=== PATIENT | female | born 1940 | race Caucasian/White ===

== ENCOUNTER 2019-05-13 13:19 | Emergency (ER) | payer MEDICARE, BC ==
[~2019-05-13] VITALS: Ht 162.6 cm; Wt 50.3 kg
--- NOTE | 2019-05-13 13:42 | PHYS DOC ---
Past Medical History Past Medical History: CVA, Hypertension Additional Past Medical Histor: valvular heart disease Additional Past Surgical Histo: heart valve replacement Smoking: Cigarettes (The patient is a nonsmoker.) Adult General HPI HPI Patient is an 79-year-old female, who presents to the emergency department for evaluation. She was at home, cooking, when she began experiencing dizziness, described as a lightheadedness, as well as shortness of breath. Her family helped her sit down, but her symptoms did not resolve so EMS was called. The pat ient did not have any pain. She denies having any chest pain at this time. She reported persistent dizziness in the ambulance on the way to the emergency department, but at the time of arrival, she is asymptomatic. She feels back to her baseline. She denies any dizziness or lightheadedness at this time, denies any chest pain, shortness of breath, new numbness, or focal weakness. She does have a history of a stroke with some residual right-sided weakness as well as some chronic speech impairment, but her speech and motor function is at baseline. There are no alleviating or exacerbating factors to her symptoms otherwise. Review of Systems Review of Systems Constitutional: Denies fever or chills [] Eyes: Denies change in visual acuity, redness, or eye pain [] HENT: Denies nasal congestion or sore throat [] Respiratory: Denies cough or current shortness of breath [] Cardiovascular: The patient denies any chest pain, palpitations, or orthopnea [] GI: Denies abdominal pain, nausea, vomiting, bloody stools or diarrhea [] : Denies dysuria or hematuria [] Musculoskeletal: Denies back pain or joint pain [] Integument: Denies rash or skin lesions [] Neurologic: Denies headache, focal weakness or sensory changes [] Endocrine: Denies polyuria or polydipsia [] All other systems were reviewed and found to be within normal limits, except as documented in this note. Allergies Allergies Allergies Coded Allergies Type Severity Reaction Last Updated Verified codeine Allergy Intermediate 05/13/19 Yes Physical Exam Physical Exam PHYSICAL EXAM: CONSTITUTIONAL: Well developed, well nourished HEAD: normocephalic, atraumatic EENT: PERRL, EOMI. Conjunctivae normal color, sclerae non-icteric; moist mucous membranes. NECK: Supple, non-tender; no meningismus. LUNGS: Lungs CTA, breathing even and unlabored. Normal air movement. HEART: Regular rate and rhythm, no murmur. There is an S4 gallop present CHEST: No deformity; non-tender ABDOMEN: The abdomen is soft, and non-tender, no masses or bruits. EXTREM: Normal ROM; no deformity, mild bilateral calf tenderness, which the patient and her state are chronic. Normal pulses palpable in all extremities. There is trace bilateral pedal edema. SKIN: No rash; no diaphoresis NEURO: Alert; normal speech and cognition; CN's grossly intact; strength grossly intact without focal deficit. BACK: No CVA TTP. Current Patient Data Vital Signs Vital Signs Date Time Temp Pulse Resp B/P (MAP) Pulse Ox O2 Delivery O2 Flow Rate FiO2 05/13/19 13:53 98.6 73 16 157/75 (102) 96 Room Air 98.6 Lab Values Laboratory Tests Test 05/13/19 13:42 05/13/19 14:20 White Blood Count 6.4 x10^3/uL (4.0-11.0) Red Blood Count 4.23 x10^6/uL (3.50-5.40) Hemoglobin 13.1 g/dL (12.0-15.5) Hematocrit 39.0 % (36.0-47.0) Mean Corpuscular Volume 92 fL (79-100) Mean Corpuscular Hemoglobin 31 pg (25-35) Mean Corpuscular Hemoglobin Concent 34 g/dL (31-37) Red Cell Distribution Width 14.7 % (11.5-14.5) H Platelet Count 200 x10^3/uL (140-400) Neutrophils (%) (Auto) 56 % (31-73) Lymphocytes (%) (Auto) 34 % (24-48) Monocytes (%) (Auto) 8 % (0-9) Eosinophils (%) (Auto) 1 % (0-3) Basophils (%) (Auto) 1 % (0-3) Neutrophils # (Auto) 3.5 x10^3/uL (1.8-7.7) Lymphocytes # (Auto) 2.2 x10^3/uL (1.0-4.8) Monocytes # (Auto) 0.5 x10^3/uL (0.0-1.1) Eosinophils # (Auto) 0.1 x10^3/uL (0.0-0.7) Basophils # (Auto) 0.1 x10^3/uL (0.0-0.2) Prothrombin Time 41.4 SEC (11.7-14.0) H Prothrombin Time INR 4.3 (0.8-1.1) H Sodium Level 142 mmol/L (136-145) Potassium Level 4.0 mmol/L (3.5-5.1) Chloride Level 103 mmol/L (98-107) Carbon Dioxide Level 33 mmol/L (21-32) H Anion Gap 6 (6-14) Blood Urea Nitrogen 24 mg/dL (7-20) H Creatinine 1.2 mg/dL (0.6-1.0) H Estimated GFR (Cockcroft-Gault) 43.2 BUN/Creatinine Ratio 20 (6-20) Glucose Level 105 mg/dL (70-99) H Calcium Level 9.4 mg/dL (8.5-10.1) Total Bilirubin 0.6 mg/dL (0.2-1.0) Aspartate Amino Transferase (AST) 42 U/L (15-37) H Alanine Aminotransferase (ALT) 40 U/L (14-59) Alkaline Phosphatase 300 U/L (46-116) H Troponin I Quantitative < 0.017 ng/mL (0.000-0.055) II-Ldc-S-Type Natriuretic Peptide 1170 pg/mL (0-449) H Total Protein 6.4 g/dL (6.4-8.2) Albumin 3.5 g/dL (3.4-5.0) Albumin/Globulin Ratio 1.2 (1.0-1.7) Thyroid Stimulating Hormone (TSH) 3.168 uIU/mL (0.358-3.74) Free Thyroxine 1.04 ng/dL (0.76-1.46) Laboratory Tests 05/13/19 13:42 Laboratory Tests 05/13/19 14:20 EKG EKG Normal sinus rhythm at a rate of 72 beats for minute, left axis deviation, left bundle branch block, nonspecific ST/T changes are present.[] Radiology/Procedures Radiology/Procedures [PROCEDURE: PORTABLE CHEST 1V AP portable chest radiograph 05/23/2019 Clinical History: Shortness of breath and weakness. An AP erect portable digital radiograph of the chest was obtained. No previous studies are available for comparison. The patient is post cardiac valve replacement. The cardiac silhouette is mildly enlarged. Atherosclerotic calcification of the thoracic aorta is seen. The thoracic aorta is mildly tortuous. No acute pulmonary infiltrate is seen. No pneumothorax or pleural effusion is seen. There is diffuse osteopenia of the visualized bony structures. Degenerative changes are seen involving the thoracic spine and both shoulders. IMPRESSION: No acute abnormality is seen.] Course & Med Decision Making Course & Med Decision Making Pertinent Labs and Imaging studies reviewed. (See chart for details) []3:10 PM: The patient's condition remains stable, she remains asymptomatic. I discussed test results with the patient, and we discussed overnight hospitalization, as I do not have a clear etiology of the patient's symptoms, but the patient declined. We discussed the possibility of occult cardiac arrhythmia or other cardiac event which could be causing the symptoms but the patient still declined hospitalization. She would like to go home. I discussed the elevated INR, holding tonight's Coumadin dose, and then resuming, the need for close PCP follow-up and return precautions. Dragon Disclaimer Dragon Disclaimer This electronic medical record was generated, in whole or in part, using a voice recognition dictation system. Departure Departure Impression: Primary Impression: Dizziness Additional Impressions: Shortness of breath Elevated INR Disposition: 01 HOME, SELF-CARE Condition: STABLE Patient Instructions: Dizziness, Shortness of Breath Additional Instructions: Skip your warfarin dose today, and then resume according to regular schedule, have your INR rechecked within one week. Problem Qualifiers CYNTHIA DURAN MD May 13, 2019 13:42
[2019-05-13 13:50] LABS: BASO # 0.1 x10^3/uL (0.0-0.2); BASO % 1 % (0-3); EOS # 0.1 x10^3/uL (0.0-0.7); EOS % 1 % (0-3); HEMOGLOBIN 13.1 g/dL (12.0-15.5); LYMPH # 2.2 x10^3/uL (1.0-4.8); LYMPH % 34 % (24-48); MEAN CORPUSCULAR HEMOGLOBIN 31 pg (25-35); MEAN CORPUSCULAR HGB CONC 34 g/dL (31-37); MEAN CORPUSCULAR VOLUME 92 fL (79-100); MONO # 0.5 x10^3/uL (0.0-1.1); MONO % 8 % (0-9); NEUT # 3.5 x10^3/uL (1.8-7.7); NEUT % 56 % (31-73); PLATELET COUNT 200 x10^3/uL (140-400); RED BLOOD COUNT 4.23 x10^6/uL (3.50-5.40); RED CELL DISTRIBUTION WIDTH 14.7 % (11.5-14.5); WHITE BLOOD COUNT 6.4 x10^3/uL (4.0-11.0)
[2019-05-13 13:59] LABS: PROTHROMBIN TIME PATIENT 41.4 SEC (11.7-14.0)
--- NOTE | 2019-05-13 14:36 | RAD ---
AP portable chest radiograph 05/23/2019 Clinical History: Shortness of breath and weakness. An AP erect portable digital radiograph of the chest was obtained. No previous studies are available for comparison. The patient is post cardiac valve replacement. The cardiac silhouette is mildly enlarged. Atherosclerotic calcification of the thoracic aorta is seen. The thoracic aorta is mildly tortuous. No acute pulmonary infiltrate is seen. No pneumothorax or pleural effusion is seen. There is diffuse osteopenia of the visualized bony structures. Degenerative changes are seen involving the thoracic spine and both shoulders. IMPRESSION: No acute abnormality is seen. Electronically signed by: Gerardo Saavedra MD (05/13/2019 2:33 PM) [facility]
[2019-05-13 14:38] LABS: CALCIUM 9.4 mg/dL (8.5-10.1); CREATININE 1.2 mg/dL (0.6-1.0); GFR 43.2
[2019-05-13 14:43] LABS: ALBUMIN 3.5 g/dL (3.4-5.0); ALBUMIN/GLOBULIN RATIO 1.2 (1.0-1.7); TOTAL BILIRUBIN 0.6 mg/dL (0.2-1.0); TOTAL PROTEIN 6.4 g/dL (6.4-8.2)
[2019-05-13 14:51] LABS: FREE T4 1.04 ng/dL (0.76-1.46); THYROID STIM HORMONE (TSH) 3.168 uIU/mL (0.358-3.74)
[2019-05-13 15:00] VITALS: BP 153/67
--- NOTE | 2019-05-14 07:48 | EKG ---
[facility] [address] [place] [address] Test Date: 2019-05-13 Test Time: 13:26:53 Pat Name: BEN BRAY Department: Room: Gender: F Hopper Attendant: : 1940 Requested By: CYNTHIA DURAN Order Number: [id number] Reading MD: Measurements Intervals [place] Rate: 71 P: -68 IA: 188 QRS: -62 QRSD: 130 T: 78 QT: 446 QTc: 490 Interpretive Statements SINUS RHYTHM ABNORMAL LEFT AXIS DEVIATION LEFT BUNDLE BRANCH BLOCK ABNORMAL ECG No previous ECG available for comparison
== END 2019-05-13 15:30 | disposition home or self-care (01) ==
LOC: ER 13:19
DX: R42 Dizziness and giddiness (principal); R06.02 Shortness of breath; R79.1 Abnormal coagulation profile; I11.9 Hypertensive heart disease without heart failure; Z86.73 Personal history of transient ischemic attack (TIA), and cerebral infarction without residual deficits; Z95.2 Presence of prosthetic heart valve; Z88.5 Allergy status to narcotic agent
CPT/HCPCS: 36415; 71045; 80053; 83880; 84439; 84443; 84484; 85025; 85610; 93005; 99285-25

== ENCOUNTER 2020-08-19 10:14 | Emergency (ER) | payer MEDICARE, BC ==
[~2020-08-19] VITALS: Ht 162.6 cm; Wt 54.0 kg
[~2020-08-19 10:14] MED LIST: ATOR40TA PO; FURO-69 PO; METO25TA4 PO; WARF-31 PO; WARF2.5T71 PO
[2020-08-19] MEDS ORDERED: ASPIRIN 325 MG TABLET PO ONE (10:30)
[2020-08-19] MEDS ORDERED: IV NORMAL SALINE 1000ML BAG 1,000 ML IV ONE (10:30)
[2020-08-19 10:48] LABS: BASO # 0.1 x10^3/uL (0.0-0.2); BASO % 1 % (0-3); EOS # 0.1 x10^3/uL (0.0-0.7); EOS % 2 % (0-3); LYMPH # 2.5 x10^3/uL (1.0-4.8); LYMPH % 37 % (24-48); MEAN CORPUSCULAR HEMOGLOBIN 30 pg (25-35); MEAN CORPUSCULAR HGB CONC 33 g/dL (31-37); MEAN CORPUSCULAR VOLUME 90 fL (79-100); MONO # 0.7 x10^3/uL (0.0-1.1); MONO % 11 % (0-9); NEUT # 3.3 x10^3/uL (1.8-7.7); NEUT % 49 % (31-73); PLATELET COUNT 201 x10^3/uL (140-400); RED BLOOD COUNT 3.98 x10^6/uL (3.50-5.40); RED CELL DISTRIBUTION WIDTH 13.6 % (11.5-14.5); WHITE BLOOD COUNT 6.6 x10^3/uL (4.0-11.0)
[2020-08-19 11:00] LABS: CALCIUM 8.7 mg/dL (8.5-10.1); CREATININE 1.1 mg/dL (0.6-1.0); GFR 47.7; POTASSIUM 3.3 mmol/L (3.5-5.1)
[2020-08-19 11:06] LABS: ALBUMIN 3.4 g/dL (3.4-5.0); ALBUMIN/GLOBULIN RATIO 1.1 (1.0-1.7); MAGNESIUM 1.9 mg/dL (1.8-2.4); TOTAL BILIRUBIN 0.8 mg/dL (0.2-1.0); TOTAL PROTEIN 6.5 g/dL (6.4-8.2)
--- NOTE | 2020-08-19 11:20 | PHYS DOC ---
Past Medical History Past Medical History: CVA, GERD, High Cholesterol, Hypertension, Hypothyroid, Stroke Additional Past Medical Histor: valvular heart disease Past Surgical History: Hysterectomy Additional Past Surgical Histo: heart valve replacement Smoking Status: Never Smoker Alcohol Use: None Drug Use: None General Adult EDM: Chief Complaint: CHEST PAIN HPI: HPI: 80 years old female presents to the ER via EMS with a chief complaint of chest pain. Patient has a history of stroke 3 years ago with a residual slurred speech. (Of note: During the evaluation interview, patient seems to understand but have a hard time articulating or remembering details) Patient reports having baseline chest pain that worsened the last 2 - 3 days. The chest pain is intermittent without any specific trigger. Reports the pain is located in sternum and midepigastric regions. Patient cannot grade her pain level. Associated symptom of palpitation, shortness of breath, headache last night, double vision, and right leg pain. Per family, patient underwent vascular intervention in her right leg. Patient and family could not remember the exact name of the vascular procedures and the timing. Leg procedure was done at [facility] by Dr. William Grace around March to May 2020. Per [facility] review, patient was recently admitted for same complaint. After 3 negative troponins, it was thought patient's pain to be more likely secondary to known fibromyalgia. Review of Systems: Review of Systems: Constitutional: Denies fever or chills Eyes: Denies redness or eye pain HENT: Denies nasal congestion or sore throat Respiratory: Denies cough, reports shortness of breath Cardiovascular: Reports occasional palpitation, reports chest pain GI: Denies abdominal pain, nausea, or vomiting : Denies dysuria or hematuria Musculoskeletal: Denies back pain, reports right upper thigh and lower leg pain Integument: Denies rash or skin lesions Neurologic: Denies headache, focal weakness or sensory changes Complete systems were reviewed and found to be within normal limits, except as documented in this note. Heart Score: HEART Score for Chest Pain: HEART Score for Chest Pain Response (Comments) Value History Moderately Suspicious 1 ECG Nonspecific Repolarizatio 1 Age > 65 2 Risk Factors 1 or 2 Risk Factors 1 Troponin < Normal Limit 0 Total 5 Risk Factors: Risk Factors: DM, Current or recent (<one month) smoker, HTN, HLP, family history of CAD, obesity. Risk Scores: Score 0 - 3: 2.5% MACE over next 6 weeks - Discharge Home Score 4 - 6: 20.3% MACE over next 6 weeks - Admit for Clinical Observation Score 7 - 10: 72.7% MACE over next 6 weeks - Early Invasive Strategies Family History: Family History: Noncontributory, mom and dad passed due to her age and natural cause. 3 siblings healthy .10 healthy children Current Medications: Current Medications Medications (Trade) Dose Ordered Sig/Kandy Start Time Stop Time Status Last Admin Dose Admin Aspirin (Sugey Aspirin) 325 mg 1X ONCE 08/19/20 10:30 08/19/20 10:31 DC Sodium Chloride 1,000 ml @ 1,000 mls/hr 1X ONCE 08/19/20 10:30 08/19/20 11:29 Allergies: Allergies: Allergies Coded Allergies Type Severity Reaction Last Updated Verified codeine Allergy Intermediate 05/13/19 Yes Physical Exam: PE: Constitutional: well nourished, non-toxic appearance HENT: Normocephalic, atraumatic Eyes: conjunctiva normal, no discharge Neck: Normal range of motion, no tenderness, supple Lungs & Thorax: No respiratory distress, equal chest rise and fall, CTAB, Chest: Noticed a longitudinal mid chest incision that attributes to open heart surgery, no chest pain on palpation Heart: Irregular rhythm, normal S1-S2 Abdomen: Soft, no tenderness Skin: Warm, dry, no erythema, no rash Back: No tenderness, no CVA tenderness Extremities: no edema, RLE -tender on thigh and calf squeezing, did not fail tibialis posterior pulses LLE -no tenderness on palpation, tibialis posterior pulse presents Neurologic: Alert and oriented X2 (self, time, not location), normal sensory function, no focal deficits noted, slurred speech (baseline per patient and family) Psychologic: Affect normal, judgment normal Current Patient Data: Labs: Laboratory Tests Test 08/19/20 10:30 White Blood Count 6.6 x10^3/uL (4.0-11.0) Red Blood Count 3.98 x10^6/uL (3.50-5.40) Hemoglobin 12.0 g/dL (12.0-15.5) Hematocrit 36.0 % (36.0-47.0) Mean Corpuscular Volume 90 fL (79-100) Mean Corpuscular Hemoglobin 30 pg (25-35) Mean Corpuscular Hemoglobin Concent 33 g/dL (31-37) Red Cell Distribution Width 13.6 % (11.5-14.5) Platelet Count 201 x10^3/uL (140-400) Neutrophils (%) (Auto) 49 % (31-73) Lymphocytes (%) (Auto) 37 % (24-48) Monocytes (%) (Auto) 11 % (0-9) H Eosinophils (%) (Auto) 2 % (0-3) Basophils (%) (Auto) 1 % (0-3) Neutrophils # (Auto) 3.3 x10^3/uL (1.8-7.7) Lymphocytes # (Auto) 2.5 x10^3/uL (1.0-4.8) Monocytes # (Auto) 0.7 x10^3/uL (0.0-1.1) Eosinophils # (Auto) 0.1 x10^3/uL (0.0-0.7) Basophils # (Auto) 0.1 x10^3/uL (0.0-0.2) D-Dimer (Debbie) < 0.27 ug/mlFEU Sodium Level 143 mmol/L (136-145) Potassium Level 3.3 mmol/L (3.5-5.1) L Chloride Level 104 mmol/L (98-107) Carbon Dioxide Level 30 mmol/L (21-32) Anion Gap 9 (6-14) Blood Urea Nitrogen 16 mg/dL (7-20) Creatinine 1.1 mg/dL (0.6-1.0) H Estimated GFR (Cockcroft-Gault) 47.7 BUN/Creatinine Ratio 15 (6-20) Glucose Level 132 mg/dL (70-99) H Calcium Level 8.7 mg/dL (8.5-10.1) Magnesium Level Pending Total Bilirubin Pending Aspartate Amino Transferase (AST) Pending Alanine Aminotransferase (ALT) Pending Alkaline Phosphatase Pending Total Protein Pending Albumin Pending Albumin/Globulin Ratio Pending Lipase Pending Laboratory Tests 08/19/20 10:30 Laboratory Tests 08/19/20 10:30 Vital Signs: Vital Signs Date Time Temp Pulse Resp B/P (MAP) Pulse Ox O2 Delivery O2 Flow Rate FiO2 08/19/20 10:37 98.6 88 21 134/52 (79) 95 Room Air 98.6 EKG: EKG: @ 10:23, heart rate 88, irregular rhythm with occasional PVC, cannot rule out possibility of A. fib, left axis deviation, left bundle branch block, QRS 128 ms, QT/QTc 388/473 ms Radiology/Procedures: Radiology/Procedures: PROCEDURE: CHEST AP ONLY EXAM: Chest, single view. HISTORY: Chest pain. COMPARISON: 06/29/2020 FINDINGS: A frontal view of the chest obtained. There is increased bilateral lower lobe atelectasis or interstitial infiltrate with small pleural effusions. The superimposed on stable diffuse interstitial prominence. There is cardiomegaly and evidence of prior median and coronary artery bypass grafting and aortic valve replacement and atrial appendage clip placement. IMPRESSION: 1. Increase in bilateral lower lobe atelectasis or infiltrate and small pleural effusion superimposed on diffuse interstitial prominence. 2. Stable enlarged cardiac silhouette. Electronically signed by: Pamela Fernández MD (08/19/2020 12:18 PM) [id number] PROCEDURE: ARTERIAL STUDY LOWER EXT RIGHT US RIGHT LOWER EXTREMITY ARTERIAL DUPLEX EVAL Indication: Reason: pain, decreased pulse,hx of "vascular procedure" / Spl. Instructions: / History: Comparison: None. Procedure: Real-time grayscale, color flow Doppler, and Doppler spectral waveform analysis of the arterial system of the lower extremity is performed. Findings: Triphasic or biphasic waveforms are present in the common femoral artery, superficial femoral artery, popliteal artery, anterior tibial artery, posterior tibial artery and dorsalis pedis artery. No significant velocity elevation. Right peroneal artery not identified. Mild atheromatous plaque. IMPRESSION: 1. Right peroneal artery not identified, may relate to technique, slow flow or occlusion. If persistent clinical concern, CT angiogram can further assess. 2. Otherwise, no hemodynamic significant stenosis within the right lower extremity. 3. Mild atheromatous plaque. Electronically signed by: Vivek Mcnamara DO (08/19/2020 12:23 PM) [id number] PROCEDURE: VENOUS LOWER EXTREMITY RIGHT RIGHT LEG VENOUS DOPPLER STUDY: Clinical indications: Right leg pain. Findings: Duplex sonography (including bernstein scale evaluation and color flow and waveform spectral analysis) of the proximal aspect of the greater saphenous vein and proximal aspect of the profunda femoral vein and the entire length of the common femoral and superficial femoral and popliteal veins and the tibioperoneal trunk and the proximal aspect of the posterior tibial veins of the right leg was performed. Normal compressibility, augmentation of color Doppler flow after calf compression, and respiratory variation of Doppler flow is seen. Thus, there are no sonographic findings of deep venous thrombosis within these veins. The peroneal veins were not visualized. Impression: There are no sonographic findings of deep venous thrombosis within the veins discussed above of the right lower extremity. Electronically signed by: Ar Dixon MD (08/19/2020 12:18 PM) [id number] Course & Med Decision Making: Course & Med Decision Making 80 years old female comes to ER via EMS with chief complaint of worsening chest pain. She also reports right leg pain at thigh and calf even at rest. Patient has history of stroke 3 years ago, open heart surgery with unknown timeframe, right leg vascular intervention recently. Unable to get a detailed history from H&P from patient and daughter because they do not remember the details of providers, locations, and procedure name. Patient with significant cardiac risk factors. EKG stable. Labs obtained and posted to chart. Initial tropnin WNL. D-dimer WNL. CXR without acute process. Venous and arterial dopplers obtained to E without acute process noted. HEART score 5. Patient requiring admission for further evaluation and treatment. Discussed recommendation for admission given patient's risk factors. Patient and family elect to be discharged home. Patient and family accepting of risk factors of leaving against medical advice, including permanent disability and/or . AMA form signed. Discharge paperwork provided and patient advise to return for any worsening of condition or further concerns. Discussed findings and plan with patient and family, who acknowledge understanding and agreement. Luba Disclaimer: Luba Disclaimer: This electronic medical record was generated, in whole or in part, using a voice recognition dictation system. Departure Departure Impression: Primary Impression: Chest pain Qualified Codes: R07.9 - Chest pain, unspecified Additional Impressions: Right leg pain Left against medical advice Disposition: 07 AMA/ELOPED/LWBS Condition: GUARDED Referrals: UNKNOWN PCP NAME (PCP) Patient Instructions: Anxiety and Panic Attacks, [id number], Chest Pain (Nonspecific), [id number], Discharge Against Medical Advice, Fibromyalgia Additional Instructions: You have elected to not be admitted today for further evaluation and treatment. Please follow up closely with your doctor regarding today's visit and for re- evaluation. STEVENSON GUERRERO DO Aug 19, 2020 11:20
[2020-08-19 11:30] LABS: BILIRUBIN,URINE NEGATIVE (NEG); CLARITY,URINE CLEAR; COLOR,URINE YELLOW; NITRITE,URINE NEGATIVE (NEG); PH,URINE 6.5 (<5.0-8.0); PROTEIN,URINE NEGATIVE (NEG-TRACE); UROBILINOGEN,URINE 0.2 mg/dL (0.2 mg/dL)
[2020-08-19 11:43] LABS: BACTERIA,URINE FEW /HPF (0-FEW); RBC,URINE OCC /HPF (0-2)
--- NOTE | 2020-08-19 12:20 | RAD ---
RIGHT LEG VENOUS DOPPLER STUDY: Clinical indications: Right leg pain. Findings: Duplex sonography (including bernstein scale evaluation and color flow and waveform spectral janice lysis) of the proximal aspect of the greater saphenous vein and proximal aspect of the profunda femor al vein and the entire length of the common femoral and superficial femoral and popliteal veins and t he tibioperoneal trunk and the proximal aspect of the posterior tibial veins of the right leg was per formed. Normal compressibility, augmentation of color Doppler flow after calf compression, and respir atory variation of Doppler flow is seen. Thus, there are no sonographic findings of deep venous throm bosis within these veins. The peroneal veins were not visualized. Impression: There are no sonographic findings of deep venous thrombosis within the veins discussed ab ove of the right lower extremity. Electronically signed by: Ar Dixon MD (08/19/2020 12:18 PM) [id number]
--- NOTE | 2020-08-19 12:21 | RAD ---
EXAM: Chest, single view. HISTORY: Chest pain. COMPARISON: 06/29/2020 FINDINGS: A frontal view of the chest obtained. There is increased bilateral lower lobe atelectasis o r interstitial infiltrate with small pleural effusions. The superimposed on stable diffuse interstiti al prominence. There is cardiomegaly and evidence of prior median and coronary artery bypass grafting and aortic valve replacement and atrial appendage clip placement. IMPRESSION: 1. Increase in bilateral lower lobe atelectasis or infiltrate and small pleural effusion superimposed on diffuse interstitial prominence. 2. Stable enlarged cardiac silhouette. Electronically signed by: Pamela Fernández MD (08/19/2020 12:18 PM) [id number]
--- NOTE | 2020-08-19 12:25 | RAD ---
US RIGHT LOWER EXTREMITY ARTERIAL DUPLEX EVAL Indication: Reason: pain, decreased pulse,hx of "vascular procedure" / Spl. Instructions: / History: Comparison: None. Procedure: Real-time grayscale, color flow Doppler, and Doppler spectral waveform analysis of the art erial system of the lower extremity is performed. Findings: Triphasic or biphasic waveforms are present in the common femoral artery, superficial femoral artery, popliteal artery, anterior tibial artery, posterior tibial artery and dorsalis pedis artery. No sign ificant velocity elevation. Right peroneal artery not identified. Mild atheromatous plaque. IMPRESSION: 1. Right peroneal artery not identified, may relate to technique, slow flow or occlusion. If persist ent clinical concern, CT angiogram can further assess. 2. Otherwise, no hemodynamic significant stenosis within the right lower extremity. 3. Mild atheromatous plaque. Electronically signed by: Vivek Mcnamara DO (08/19/2020 12:23 PM) [id number]
[2020-08-19 13:30] VITALS: BP 167/97
--- NOTE | 2020-08-19 14:23 | EKG ---
[facility] [address] [place] [address] Test Date: 2020-08-19 Test Time: 10:20:23 Pat Name: BEN BRAY Department: Room: Gender: F 3Rd Grade Teacher: : 1940 Requested By: STEVENSON GUERRERO Order Number: [id number] Reading MD: Measurements Intervals [place] Rate: 88 P: UT: QRS: -47 QRSD: 128 T: 87 QT: 388 QTc: 473 Interpretive Statements IRREGULAR RHYTHM, NO P-WAVE FOUND VENTRICULAR PREMATURE COMPLEX(ES) ABNORMAL LEFT AXIS DEVIATION LEFT BUNDLE BRANCH BLOCK ABNORMAL ECG RI6.02 No previous ECG available for comparison
== END 2020-08-19 14:29 | disposition left against medical advice (07) ==
LOC: ER 10:14
DX: R07.2 Precordial pain (principal); R47.81 Slurred speech; R51.9 Headache, unspecified; M79.604 Pain in right leg; K21.9 Gastro-esophageal reflux disease without esophagitis; E78.00 Pure hypercholesterolemia, unspecified; I10 Essential (primary) hypertension; E03.9 Hypothyroidism, unspecified; Z86.73 Personal history of transient ischemic attack (TIA), and cerebral infarction without residual deficits; Z90.710 Acquired absence of both cervix and uterus; Z88.5 Allergy status to narcotic agent
CPT/HCPCS: 36415; 71045; 80053; 81001; 83690; 83735; 83880; 84484; 85025; 85379; 93005; 93923; 93971; 96360; 99285; J7030

== ENCOUNTER 2020-10-16 12:52 | Emergency (ER) | payer MEDICARE, BC ==
[~2020-10-16] VITALS: Ht 162.6 cm; Wt 55.0 kg
--- NOTE | 2020-10-16 13:10 | PHYS DOC ---
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 Patient and spouse report onset of transient decreased LOC with chest fullness and mild generalized weakness noticed around 0900 this morning. Was just started on liquid KCl. Spouse reports multiple prior choking episodes with eating and drinking. Denies headache, dyspnea, abdominal pain, nausea or vomiting. Her current neurological deficits are at baseline according to . Review of Systems: Review of Systems: Gen: No fever, chills. Eyes: No blurred vision, diplopia. ENT: No nasal congestion, sore throat. CV: No palpitations. Reports chest fullness. Resp. No SOB, cough. GI: No abd pain, N/V. : No dysuria. Neuro: No BARRERA, dizziness. Reports mild generalized weakness, transient altered mentation. Remainder of systems reviewed and negative unless otherwise specified. Heart Score: Risk Factors: Risk Factors: DM, Current or recent (<one month) smoker, HTN, HLP, family history of CAD, obesity. Risk Scores: Score 0 - 3: 2.5% MACE over next 6 weeks - Discharge Home Score 4 - 6: 20.3% MACE over next 6 weeks - Admit for Clinical Observation Score 7 - 10: 72.7% MACE over next 6 weeks - Early Invasive Strategies Allergies: Allergies: Allergies Coded Allergies Type Severity Reaction Last Updated Verified codeine Allergy Intermediate 05/13/19 Yes Physical Exam: PE: Gen: NAD. Head: NC/AT. Eyes: No scleral icterus. No conjunctival injection. PERRL. ENT: MMM. Posterior OP clear. Neck: Supple. NT. CV: RRR. Peripheral pulses intact. Resp: CTAB. Abd: Soft. NT. ND. MSK: No peripheral cyanosis. No edema. Neuro: A&Ox3. Sensation grossly intact throughout. No extremity drift. No dysmetria. Baseline expressive aphasia. No gross dysmetria. No meningismus. No visual field cut. No facial asymmetry. Delta NIHSS of zero. Skin. Warm. Dry. Psych: Anxious appearing. Current Patient Data: Labs: Laboratory Tests Test 10/16/20 13:05 White Blood Count 6.8 x10^3/uL (4.0-11.0) Red Blood Count 4.35 x10^6/uL (3.50-5.40) Hemoglobin 12.5 g/dL (12.0-15.5) Hematocrit 38.3 % (36.0-47.0) Mean Corpuscular Volume 88 fL (79-100) Mean Corpuscular Hemoglobin 29 pg (25-35) Mean Corpuscular Hemoglobin Concent 33 g/dL (31-37) Red Cell Distribution Width 14.5 % (11.5-14.5) Platelet Count 202 x10^3/uL (140-400) Neutrophils (%) (Auto) 49 % (31-73) Lymphocytes (%) (Auto) 37 % (24-48) Monocytes (%) (Auto) 11 % (0-9) Eosinophils (%) (Auto) 2 % (0-3) Basophils (%) (Auto) 1 % (0-3) Neutrophils # (Auto) 3.3 x10^3/uL (1.8-7.7) Lymphocytes # (Auto) 2.5 x10^3/uL (1.0-4.8) Monocytes # (Auto) 0.7 x10^3/uL (0.0-1.1) Eosinophils # (Auto) 0.1 x10^3/uL (0.0-0.7) Basophils # (Auto) 0.1 x10^3/uL (0.0-0.2) Prothrombin Time 34.5 SEC (11.7-14.0) Prothromb Time International Ratio 3.4 (0.8-1.1) Sodium Level 142 mmol/L (136-145) Chloride Level 101 mmol/L (98-107) Carbon Dioxide Level 35 mmol/L (21-32) Anion Gap 6 (6-14) Blood Urea Nitrogen 20 mg/dL (7-20) Estimated GFR (Cockcroft-Gault) 43.1 BUN/Creatinine Ratio 17 (6-20) Glucose Level 94 mg/dL (70-99) Calcium Level 9.4 mg/dL (8.5-10.1) Total Bilirubin 0.9 mg/dL (0.2-1.0) Aspartate Amino Transf (AST/SGOT) 32 U/L (15-37) Alkaline Phosphatase 212 U/L (46-116) Troponin I Quantitative < 0.017 ng/mL (0.000-0.055) Total Protein 6.5 g/dL (6.4-8.2) Albumin 3.8 g/dL (3.4-5.0) Albumin/Globulin Ratio 1.4 (1.0-1.7) EKG: EKG: EKG at 1318. Sinus rhythm. Heart rate 73. Left bundle branch block morphology with QRS duration of 130 ms. No STEMI. Interpreted by me. Radiology/Procedures: Radiology/Procedures: EXAM: XR CHEST 1V INDICATION: Reason: Chest tightness / Spl. Instructions: / History: . TECHNIQUE: Single view COMPARISON: 08/19/2020 chest x-ray FINDINGS: The heart size is enlarged. Aortic valve prosthesis and left atrial appendage occlusion device are redemonstrated. The great vessels appear unremarkable. There is no hilar or mediastinal mass. The lungs are clear. There is no pleural effusion or pneumothorax. No acute or aggressive osseous lesions. Sternotomy wires in place. IMPRESSION: Cardiomegaly with no acute superimposed cardiopulmonary process. Electronically signed by: Fox Luna MD (10/16/2020 1:19 PM) [id number] STUDY: CT head without contrast INDICATION: Weakness. Provided history of a stroke. COMPARISON: None. TECHNIQUE: Axial CT imaging through the head without the use of intravenous contrast. Sagittal and coronal reformats were obtained. One or more of the following individualized dose reduction techniques were utilized for this examination: 1. Automated exposure control 2. Adjustment of the mA and/or kV according to patient size 3. Use of iterative reconstruction technique. FINDINGS: No acute intracranial hemorrhage. No localized mass effect or midline shift. Ex vacuo dilatation of the left lateral ventricle in the setting of scattered encephalomalacia involving portions of the frontal and temporal lobes and along the deep margin of the insular cortex. No bernstein-white matter differentiation loss seen throughout the right cerebral hemisphere. Parenchymal volume loss. Intracranial calcific atherosclerosis. White matter findings most often seen in the setting of chronic microvascular ischemic change. No acute calvarial abnormality. Normally aerated mastoid air cells, middle ears and visualized paranasal sinuses. IMPRESSION: 1. No acute intracranial abnormality by CT. 2. Encephalomalacia involving portions of the left cerebral hemisphere most likely on account of a remote infarct or infarcts. If there is clinical concern for a recent ischemic event MRI would be more sensitive. Electronically signed by: ANNE SINGH MD (10/16/2020 1:40 PM) [id number] Course & Med Decision Making: Course & Med Decision Making Pertinent Labs and Imaging studies reviewed. (See chart for details) In summary, 80F p/w chest fullness, fatigue, and feeling unwell this morning. No BARRERA or new focal neuro deficits (baseline expressive aphasia and right sided weakness - but no drift on exam). HDS. Delta NIHSS zero. Unremarkable cardioresp exam. Labs unrevealing. CXR clear, no aspiration PNA. CTH neg for acute findings. Do not suspect acute CVA or other acute emergent pathology at this time. Remains well appearing and nontoxic. Provided with reassurance. Will DC home with F/U. Strict return precautions given. Luba Disclaimer: Luba Disclaimer: This electronic medical record was generated, in whole or in part, using a voice recognition dictation system. Departure Departure Impression: Primary Impression: Transient alteration of awareness Additional Impression: Chest fullness Disposition: 01 DC HOME SELF CARE/HOMELESS Condition: STABLE Patient Instructions: Altered Mental Status Additional Instructions: Please follow up with your primary doctor. Return to the ED if you develop new or worsening symptoms. MARY MUNIZ DO Oct 16, 2020 13:10
[2020-10-16] MEDS ORDERED: LIDO:MAALOX 1:1 20 ML SINGLE DOSE. SWSW ONE (13:15)
--- NOTE | 2020-10-16 13:21 | RAD ---
EXAM: XR CHEST 1V INDICATION: Reason: Chest tightness / Spl. Instructions: / History: . TECHNIQUE: Single view COMPARISON: 08/19/2020 chest x-ray FINDINGS: The heart size is enlarged. Aortic valve prosthesis and left atrial appendage occlusion device are re demonstrated. The great vessels appear unremarkable. There is no hilar or mediastinal mass. The lungs are clear. There is no pleural effusion or pneumothorax. No acute or aggressive osseous lesions. Sternotomy wires in place. IMPRESSION: Cardiomegaly with no acute superimposed cardiopulmonary process. Electronically signed by: Fox Luna MD (10/16/2020 1:19 PM) [id number]
[2020-10-16 13:39] LABS: BASO # 0.1 x10^3/uL (0.0-0.2); BASO % 1 % (0-3); EOS # 0.1 x10^3/uL (0.0-0.7); EOS % 2 % (0-3); HEMATOCRIT 38.3 % (36.0-47.0); HEMOGLOBIN 12.5 g/dL (12.0-15.5); LYMPH # 2.5 x10^3/uL (1.0-4.8); LYMPH % 37 % (24-48); MEAN CORPUSCULAR HEMOGLOBIN 29 pg (25-35); MEAN CORPUSCULAR HGB CONC 33 g/dL (31-37); MEAN CORPUSCULAR VOLUME 88 fL (79-100); MONO # 0.7 x10^3/uL (0.0-1.1); MONO % 11 % (0-9); NEUT # 3.3 x10^3/uL (1.8-7.7); NEUT % 49 % (31-73); PLATELET COUNT 202 x10^3/uL (140-400); RED BLOOD COUNT 4.35 x10^6/uL (3.50-5.40); RED CELL DISTRIBUTION WIDTH 14.5 % (11.5-14.5); WHITE BLOOD COUNT 6.8 x10^3/uL (4.0-11.0)
--- NOTE | 2020-10-16 13:42 | RAD ---
STUDY: CT head without contrast INDICATION: Weakness. Provided history of a stroke. COMPARISON: None. TECHNIQUE: Axial CT imaging through the head without the use of intravenous contrast. Sagittal and co charlette reformats were obtained. One or more of the following individualized dose reduction techniques were utilized for this examinat ion: 1. Automated exposure control 2. Adjustment of the mA and/or kV according to patient size 3. Use of iterative reconstruction technique. FINDINGS: No acute intracranial hemorrhage. No localized mass effect or midline shift. Ex vacuo dilatation of t he left lateral ventricle in the setting of scattered encephalomalacia involving portions of the fron césar and temporal lobes and along the deep margin of the insular cortex. No bernstein-white matter differen tiation loss seen throughout the right cerebral hemisphere. Parenchymal volume loss. Intracranial calcific atherosclerosis. White matter findings most often seen in the setting of chronic microvascular ischemic change. No acute calvarial abnormality. Normally aerated mastoid air cells, middle ears and visualized parana elvira sinuses. IMPRESSION: 1. No acute intracranial abnormality by CT. 2. Encephalomalacia involving portions of the left cerebral hemisphere most likely on account of a r emote infarct or infarcts. If there is clinical concern for a recent ischemic event MRI would be more sensitive. Electronically signed by: ANNE SINGH MD (10/16/2020 1:40 PM) [id number]
[2020-10-16 13:51] LABS: CALCIUM 9.4 mg/dL (8.5-10.1); CREATININE 1.2 mg/dL (0.6-1.0); GFR 43.1; POTASSIUM 3.5 mmol/L (3.5-5.1)
[2020-10-16 13:54] LABS: PROTHROMBIN TIME PATIENT 34.5 SEC (11.7-14.0)
[2020-10-16 13:57] LABS: ALBUMIN 3.8 g/dL (3.4-5.0); ALBUMIN/GLOBULIN RATIO 1.4 (1.0-1.7); MAGNESIUM 2.2 mg/dL (1.8-2.4); TOTAL BILIRUBIN 0.9 mg/dL (0.2-1.0); TOTAL PROTEIN 6.5 g/dL (6.4-8.2)
[2020-10-16 14:58] VITALS: BP 142/60
== END 2020-10-16 15:21 | disposition home or self-care (01) ==
LOC: ER 12:52
DX: R40.4 Transient alteration of awareness (principal); R07.89 Other chest pain; G93.89 Other specified disorders of brain; K21.9 Gastro-esophageal reflux disease without esophagitis; E78.00 Pure hypercholesterolemia, unspecified; I10 Essential (primary) hypertension; E03.9 Hypothyroidism, unspecified; Z86.73 Personal history of transient ischemic attack (TIA), and cerebral infarction without residual deficits; Z90.710 Acquired absence of both cervix and uterus; Z88.5 Allergy status to narcotic agent
CPT/HCPCS: 36415; 70450; 71045; 80053; 83735; 84484; 85025; 85610; 99285-25

== ENCOUNTER 2022-01-26 15:19 | Emergency (ER) | payer MEDICARE, BC ==
[~2022-01-26] VITALS: Ht 162.6 cm; Wt 51.8 kg
[~2022-01-26 15:19] MED LIST changes: +FAMO20TA5 PO; +METO50TA4 PO; +POTA10TA12 PO; +TORS20TA2 PO
--- NOTE | 2022-01-26 16:49 | PHYS DOC ---
Past Medical History Past Medical History: CVA, GERD, High Cholesterol, Hypertension, Hypothyroid, Stroke Additional Past Medical Histor: valvular heart disease Past Surgical History: Other Additional Past Surgical Histo: MITRAL VALVE REPLACEMENT Smoking Status: Never Smoker Alcohol Use: None Drug Use: None General Adult EDM: Chief Complaint: VAGINAL BLEEDING HPI: HPI: Patient is an 82-year-old female who presents today with vaginal bleeding. According to the who who is the patient's guardian, patient has had a stroke in the past and has some memory issues, per the he states the patient's been having some vaginal bleeding over the last month, he talked with her primary care physician and they advised them to come here to the emergency department for further evaluation and management. Patient does have a past medical history of mitral valve replacement she is on Eliquis to twice daily for this, she also has a past medical history of stroke with left her with expressive aphasia so patient is unable to remember events. Patient does state that she does have lower abdominal pain, she has painful urination as well when asked, she was unable to tell me when her last bowel movement was or if her bowel movements have been normal for her. Review of Systems: Review of Systems: Constitutional: Denies fever or chills. [] Eyes: Denies change in visual acuity. [] HENT: Denies nasal congestion or sore throat. [] Respiratory: Denies cough or shortness of breath. [] Cardiovascular: Denies chest pain or edema. [] GI: Denies abdominal pain, nausea, vomiting, bloody stools or diarrhea. [] /FINISHING RANGE SUPERVISOR: Vaginal bleeding and dysuria Musculoskeletal: Denies back pain or joint pain. [] Integument: Denies rash. [] Neurologic: Denies headache, focal weakness or sensory changes. [] Endocrine: Denies polyuria or polydipsia. [] Lymphatic: Denies swollen glands. [] Psychiatric: Denies depression or anxiety. [] Heart Score: C/O Chest Pain: No Risk Factors: Risk Factors: DM, Current or recent (<one month) smoker, HTN, HLP, family history of CAD, obesity. Risk Scores: Score 0 - 3: 2.5% MACE over next 6 weeks - Discharge Home Score 4 - 6: 20.3% MACE over next 6 weeks - Admit for Clinical Observation Score 7 - 10: 72.7% MACE over next 6 weeks - Early Invasive Strategies Allergies: Allergies: Allergies Coded Allergies Type Severity Reaction Last Updated Verified codeine Allergy Intermediate 05/13/19 Yes Physical Exam: PE: Constitutional: Well developed, well nourished, no acute distress, non-toxic appearance. [] HENT: Normocephalic, atraumatic, bilateral external ears normal, oropharynx moist, no oral exudates, nose normal. [] Eyes: PERRLA, EOMI, conjunctiva normal, no discharge. [] Neck: Normal range of motion, no tenderness, supple, no stridor. [] Cardiovascular:Heart rate regular rhythm, no murmur [] Lungs & Thorax: Bilateral breath sounds clear to auscultation [] Abdomen: Abdomen is soft with tenderness located in the lower middle abdomen, patient's bowel sounds are normal, no pulsatile masses or masses noted, with an RN present I did examine the patient's JOSÉ MIGUEL area no visible blood was noted coming from the vagina or on the labial areas Skin: Warm, dry, no erythema, no rash. [] Back: No tenderness, no CVA tenderness. [] Extremities: No tenderness, no cyanosis, no clubbing, ROM intact, no edema. [] Neurologic: Alert and oriented X 3, normal motor function, normal sensory function, no focal deficits noted. [] Psychologic: Affect normal, judgement normal, mood normal. [] Pelvic Exam: Exam done with RN at the bedside, external exam did not show any abnormalities noted, I did introduce a small speculum into the vaginal vault, patient does not have a uterus, no blood noted in the vagina, no discharge as well. I did examine the patient's anus area and no hemorrhoids were seen. Current Patient Data: Labs: Laboratory Tests Test 01/26/22 16:40 01/26/22 16:44 White Blood Count 5.8 x10^3/uL Red Blood Count 3.68 x10^6/uL Hemoglobin 10.8 g/dL Hematocrit 32.8 % Mean Corpuscular Volume 89 fL Mean Corpuscular Hemoglobin 29 pg Mean Corpuscular Hemoglobin Concent 33 g/dL Red Cell Distribution Width 14.7 % Platelet Count 174 x10^3/uL Neutrophils (%) (Auto) 46 % Lymphocytes (%) (Auto) 38 % Monocytes (%) (Auto) 14 % Eosinophils (%) (Auto) 2 % Basophils (%) (Auto) 1 % Neutrophils # (Auto) 2.6 x10^3/uL Lymphocytes # (Auto) 2.2 x10^3/uL Monocytes # (Auto) 0.8 x10^3/uL Eosinophils # (Auto) 0.1 x10^3/uL Basophils # (Auto) 0.0 x10^3/uL Sodium Level 144 mmol/L Potassium Level 3.9 mmol/L Chloride Level 104 mmol/L Carbon Dioxide Level 31 mmol/L Anion Gap 9 Blood Urea Nitrogen 25 mg/dL Creatinine 1.5 mg/dL Estimated GFR (Cockcroft-Gault) 33.2 BUN/Creatinine Ratio 17 Glucose Level 99 mg/dL Calcium Level 8.7 mg/dL Total Bilirubin 0.8 mg/dL Aspartate Amino Transf (AST/SGOT) 33 U/L Alanine Aminotransferase (ALT/SGPT) 29 U/L Alkaline Phosphatase 188 U/L Total Protein 6.2 g/dL Albumin 3.3 g/dL Albumin/Globulin Ratio 1.1 Urine Collection Type Unknown Urine Color (Auto) Colorless Urine Turbidity Clear Urine pH (Auto) 6.0 Urine Specific [place] 1.008 Urine Protein (Auto) Negative mg/dL Urine Glucose (Auto)(UA) Negative mg/dL Urine Ketones (Auto) Negative mg/dL Urine Blood (Auto) Negative Urine Nitrite Negative Urine Bilirubin (Auto) Negative Urine Urobilinogen (Auto) Normal mg/dL Urine Leukocyte Esterase (Auto) Negative Urine RBC 0 /HPF Urine WBC Occ /HPF Urine Bacteria 0 /HPF Vital Signs: Vital Signs Date Time Temp Pulse Resp B/P (MAP) Pulse Ox O2 Delivery O2 Flow Rate FiO2 01/26/22 15:35 98.0 88 18 181/91 (121) 98 Room Air 98.0 EKG: EKG: [] Radiology/Procedures: Radiology/Procedures: REASON: lower abdominal pain PROCEDURE: CT ABDOMEN PELVIS WO CONTRAST EXAMINATION: CT ABDOMEN+PELVIS WO CLINICAL HISTORY: Lower abdominal pain. TECHNIQUE: Imaging of the abdomen and pelvis was performed without intravenous contrast using standard technique, scanning from just above the dome of the diaphragm to the symphysis pubis. Unenhanced imaging is limited for the evaluation of some intra-abdominal and pelvic pathology. CT Dose Reduction Employed: One or more of the following individualized dose reduction techniques were utilized for this examination: 1. Automated exposure control 2. Adjustment of the mA and/or kV according to patient size 3. Use of iterative reconstruction technique. COMPARISON: None FINDINGS: Partially visualized moderate to severe cardiomegaly with prosthetic mitral valve. Bibasilar subsegmental atelectasis and/or scarring. Liver, gallbladder, pancreas, spleen, adrenal glands, and unenhanced kidneys unremarkable. Minimally filled urinary bladder suboptimally evaluated. Uterus poorly visualized, possibly surgically absent. No dilated bowel. Distal colonic diverticulosis. Appendix within normal limits. Nondistended stomach suboptimally evaluated. [id number] arterial atherosclerotic calcification without aneurysm. Multilevel thoracolumbar degenerative changes, greatest at L2-3 with advanced d egenerative disc disease and mild left lateral listhesis of L2 on L3. IMPRESSION: No evidence of acute abdominopelvic abnormality on limited noncontrast evaluation. Electronically signed by: Dao Samson DO (01/26/2022 5:18 PM) [facility] [] Course & Med Decision Making: Course & Med Decision Making Pertinent Labs and Imaging studies reviewed. (See chart for details) 1750 I did review radiological and laboratory results with patient and family I did inform them that there was no acute processes noted at this time, there was no blood noted on the pelvic exam as well, patient's hemoglobin was 10.2, and patient is medically stable. Patient is to follow-up with her primary care physician Dr. Watson for further evaluation and management of this vaginal bleeding with possible FINISHING RANGE SUPERVISOR referral. Patient and family are agreeable with the plan of care. Dragon Disclaimer: Dragon Disclaimer: This electronic medical record was generated, in whole or in part, using a voice recognition dictation system. Departure Departure Impression: Primary Impression: Abdominal pain Qualified Codes: R10.30 - Lower abdominal pain, unspecified Disposition: HOME / SELF CARE / HOMELESS Condition: STABLE Referrals: ISI WATSON MD (PCP) Patient Instructions: Abdominal Pain Additional Instructions: Continue your current medications that was prescribed by your primary care physician Follow-up with the Dr. Watson for further evaluation and management of this lower abdominal pain Return to the emergency department should you have increased vaginal bleeding, fainting episode, chest pain, or increased shortness of breath. LESLIE LOWE PIGMENT MAKING SUPERVISOR January 26, 2022 16:49
[2022-01-26 16:58] LABS: BASO % 1 % (0-3); EOS # 0.1 x10^3/uL (0.0-0.7); EOS % 2 % (0-3); HEMATOCRIT 32.8 % (36.0-47.0); HEMOGLOBIN 10.8 g/dL (12.0-15.5); LYMPH # 2.2 x10^3/uL (1.0-4.8); LYMPH % 38 % (24-48); MEAN CORPUSCULAR HEMOGLOBIN 29 pg (25-35); MEAN CORPUSCULAR HGB CONC 33 g/dL (31-37); MEAN CORPUSCULAR VOLUME 89 fL (79-100); MONO # 0.8 x10^3/uL (0.0-1.1); MONO % 14 % (0-9); NEUT # 2.6 x10^3/uL (1.8-7.7); NEUT % 46 % (31-73); PLATELET COUNT 174 x10^3/uL (140-400); RED BLOOD COUNT 3.68 x10^6/uL (3.50-5.40); RED CELL DISTRIBUTION WIDTH 14.7 % (11.5-14.5); WHITE BLOOD COUNT 5.8 x10^3/uL (4.0-11.0)
[2022-01-26 17:05] LABS: BACTERIA,URINE 0 /HPF (0-FEW); RBC,URINE 0 /HPF (0-2); WBC,URINE OCC /HPF (0-4)
[2022-01-26 17:14] LABS: CALCIUM 8.7 mg/dL (8.5-10.1); CREATININE 1.5 mg/dL (0.6-1.0); GFR 33.2; POTASSIUM 3.9 mmol/L (3.5-5.1)
--- NOTE | 2022-01-26 17:20 | RAD ---
EXAMINATION: CT ABDOMEN+PELVIS WO CLINICAL HISTORY: Lower abdominal pain. TECHNIQUE: Imaging of the abdomen and pelvis was performed without intravenous contrast using standar d technique, scanning from just above the dome of the diaphragm to the symphysis pubis. Unenhanced i maging is limited for the evaluation of some intra-abdominal and pelvic pathology. CT Dose Reduction Employed: One or more of the following individualized dose reduction techniques wer e utilized for this examination: 1. Automated exposure control 2. Adjustment of the mA and/or kV ac cording to patient size 3. Use of iterative reconstruction technique. COMPARISON: None FINDINGS: Partially visualized moderate to severe cardiomegaly with prosthetic mitral valve. Bibasilar subsegme ntal atelectasis and/or scarring. Liver, gallbladder, pancreas, spleen, adrenal glands, and unenhanced kidneys unremarkable. Minimally filled urinary bladder suboptimally evaluated. Uterus poorly visualized, possibly surgicall y absent. No dilated bowel. Distal colonic diverticulosis. Appendix within normal limits. Nondistended stomach suboptimally evaluated. [id number] arterial atherosclerotic calcification without aneurysm. Multilevel thoracolumbar degenerative changes, greatest at L2-3 with advanced degenerative disc disea se and mild left lateral listhesis of L2 on L3. IMPRESSION: No evidence of acute abdominopelvic abnormality on limited noncontrast evaluation. Electronically signed by: Dao Samson DO (01/26/2022 5:18 PM) [facility]
[2022-01-26 17:21] LABS: ALBUMIN 3.3 g/dL (3.4-5.0); ALBUMIN/GLOBULIN RATIO 1.1 (1.0-1.7); TOTAL BILIRUBIN 0.8 mg/dL (0.2-1.0); TOTAL PROTEIN 6.2 g/dL (6.4-8.2)
[2022-01-26 18:10] VITALS: BP 162/70
== END 2022-01-26 18:18 | disposition home or self-care (01) ==
LOC: ER 15:19
DX: R10.30 Lower abdominal pain, unspecified (principal); R30.0 Dysuria; N93.9 Abnormal uterine and vaginal bleeding, unspecified; Z86.73 Personal history of transient ischemic attack (TIA), and cerebral infarction without residual deficits; K21.9 Gastro-esophageal reflux disease without esophagitis; E78.00 Pure hypercholesterolemia, unspecified; I10 Essential (primary) hypertension; E03.9 Hypothyroidism, unspecified; Z88.5 Allergy status to narcotic agent
CPT/HCPCS: 36415; 74176; 80053; 81001; 85025; 99284-25